=== PATIENT | female | born 1950 | race Caucasian/White ===

== ENCOUNTER 2018-09-19 14:00 | Outpatient (RCR) ==
[2016-03-03 05:16] VITALS: BMI 38.2
--- NOTE | 2018-09-09 15:20 | RS.OPPTEV2 ---
Date of Note: 09/08/18 Visit #: 1 Number of visits approved by Insurance: 19 through 12/07/18 Date of Evaluation: 09/08/18 Payer Source: Insurance Surgery Performed?: No Treatment Diagnosis: R knee pain, osteoarthritis History of Condition/Mechanism of Injury:: Flare up of OA occurred on 08/14/18. 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 pt reports pain limits her ability to perform normal work duties. States that MD feels she may need a TKR, has a appt with Dr. Uli Snyder on . Treatment Side (optional): Right *Precautions: n/a Medical History Medical History: Hypertension, Arthritis, Cancer (melanoma on L forearm) Surgical History Comments:: ruptured ectopic pregancy, abd surgery for ovarian cyst, lumpectomy L breast, removal of melanoma L forearm, 2 D & C's. Smoking Status: Never smoker Hx Home Medications: metoprolol, losartan, prevacid, potassium, vyvanse, norco, diclofenac, zyrtec, nasocort, montelukast, Patient's Goals: decrease R knee pain Pain Assessment - Pain Description Pain Location: R knee Pain Description: Sharp, Aching Current Pain Intensity: 6 Worst Pain Intensity: 8 Functional Outcome Measure LE Functional Scale: 35 - G Codes & Severity Modifier G Codes & Modifier: n/a Source of G Code score: n/a Observation - Observation Posture: Forward Head, Rounded Shoulders, Increased Thoracic Kyphosis Handedness: Right Gait - Gait Pattern General Gait Pattern Observation: Antalgic Gait, Decrease Stride Lngth (R), Decrease Stride Lngth (L), Lateral Trunk Lean Gait Comments: pt amb with antalgic gait as well as increased lat sway, decreased step length. General Range of Motion: BUE WFL's. BLE hip and ankle WFL's, L knee WFL's Muscle Strength: BUE 5/5. LLE 5/5. RLE hip flex 4/5, knee flex 3-/5, ext 3+/5 , ankle DF/PF 4/5 Knee ROM: Left WFL's Knee Muscle Strength: Left WFL's - Right Knee ROM Right Knee Extension: 0 Right Knee Flexion: 86 Knee ROM Limitations: Soft Tissue Tightness, Muscle Weakness, Pain - Right Knee Strength Right Knee Extension: 3 Fair Right Knee Flexion: 3- Fair- - Special Tests Knee Anterior Drawer Test: Negative Right Knee Posterior Drawer Test: Negative Right Knee Valgus Stress Test: Negative Right Knee Varus Stress Test: Negative Right Knee Apley Compression Test: Negative Right Knee Hitesh Test: Negative Right Patella J-sign: Negative Right Palpation Palpation Findings: Tenderness Comments:: area proximal and medial of the knee Sensation - Sensation Right Upper Extremity: Intact/Normal Left Upper Extremity: Intact/Normal Right Lower Extremity: Intact/Normal Left Lower Extremity: Intact/Normal Balance - Sitting Balance Static Sitting Balance: Normal Dynamic Sitting Balance: Normal - Standing Balance Static Standing Balance: Good Dynamic Standing Balance: Good Interventions - Exercise/Activities/Manual Therapy Exercises/Activities: pt performed QS, SAQ, LAQ, and received hamstring stretch Manual Therapy: NA HOME EXERCISE PROGRAM: pt given written HEP including: QS, SAQ, LAQ, hamstring stretch - Charges Timed Code Treatment Minutes: 52 Total Treatment Time: 61 Procedures billed for this date of service:: thang low, ex EVALUATION COMPLEXITY LEVEL EVALUATION COMPLEXITY LEVEL: HISTORY: Low, EXAM OF BODY SYSTEMS: Low, CLINICAL PRESENTATION: Medium, CLINICAL DECISION MAKING: Low Assessment Assessment: pt presents with R knee pain with decreased ROM, strength, as well as edema RLE. Feel pt would benefit from skilled PT for therex for ROM, strengthening, as well as modalities for pain/edema. 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 Goal to be met by: 10/03/18 Goal #3: Improved strength 4- to 4/5 Goal to be met by: 10/03/18 Goal #4: Improve LE functional scale to 50 Goal to be met by: 10/03/18 Plan - Treatment to be Provided Procedures: Therapeutic Exercises, Therapeutic Activity, Manual Therapy, Massage , Patient Education Modalities: Electrical Stimulation, Ultrasound/Phonophoresis, Cryotherapy, Hot Packs - Treatment Plan Frequency: 3 X week Duration: 4 weeks Dates of Cannoneer Goals: 10/03/18 Expiration date of current Insurance Approval:: 19 visits thru 12/07/18 - Treatment Code (1) Osteoarthritis of right knee Code(s): M17.9 - OSTEOARTHRITIS OF KNEE, UNSPECIFIED Qualifiers: Osteoarthritis type: primary Qualified Code(s): M17.11 - Unilateral primary osteoarthritis, right knee (2) Right knee pain Code(s): M25.561 - PAIN IN RIGHT KNEE Qualifiers: Chronicity: chronic Qualified Code(s): M25.561 - Pain in right knee; G89.29 - Other chronic pain (3) Joint stiffness of knee Qualifiers: Laterality: right Qualified Code(s): M25.661 - Stiffness of right knee, not elsewhere classified (4) Joint effusion of knee Qualifiers: Laterality: right Qualified Code(s): M25.461 - Effusion, right knee
--- NOTE | 2018-09-11 16:34 | RS.OPPTDN ---
Subjective Date of Note: 09/11/18 Visit #: 2 Number of visits approved by Insurance: na Date of Evaluation: 09/08/18 Payer Source: Insurance Treatment Diagnosis: R knee pain, osteoarthritis Current Subjective/complaints:: Patient report a decrease in pain following modalities and gentle exercise. *Precautions: n/a Pain Assessment - Pain Description Pain Location: Bialteral knees, R>L Pain Description: Sharp, Aching Current Pain Intensity: mod+ with weight bearing - Treatment Modality: Ultrasound Parameters/Method Applied: [id number] at 1.5w/cm2 to the right knee joint. Patient Position: Supine - Heat/Cryotherapy Treatment: Hot Pack ([id number] to bilateral knee joints prior to US and EX. Patient in supine. ) Interventions - Exercise/Activities/Manual Therapy Exercises/Activities: Performs QS and Ham sets with verbal and tactile cues. Assisted hamstring stretch and knee flexion/extension. Total minutes of Exercise: 12mins Manual Therapy: Directional lymphatic massage to the right LE. Total minutes of Manual Therapy: 5mins HOME EXERCISE PROGRAM: pt given written HEP including: QS, SAQ, LAQ, hamstring stretch - Charges Timed Code Treatment Minutes: 27mins Total Treatment Time: 47mins Procedures billed for this date of service:: HP, US, EX Assessment: Patient responds well to treatment with report of decreased pain. Patient Education: Body/Joint mechanics, Home Exercise Program Comments: Patient advised to focus on isometric exercise and use heat and/or ice to manage pain. 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
--- NOTE | 2018-09-12 15:35 | RS.OPPTDN ---
Subjective Date of Note: 09/12/18 Visit #: 3 Number of visits approved by Insurance: N/A Date of Evaluation: 09/08/18 Payer Source: Insurance Treatment Diagnosis: R knee pain, osteoarthritis Current Subjective/complaints:: pt states she can really tell a difference just coming for 2 visits. States her pain is decreased and her motion is a little better. *Precautions: n/a Pain Assessment - Pain Description Pain Location: R knee Pain Description: Aching Current Pain Intensity: 2 - Treatment Modality: Ultrasound Parameters/Method Applied: 1.5w/cm2 x 8 mins Treatment Area: R knee Patient Position: Supine - Heat/Cryotherapy Treatment: Hot Pack Comments:: B knees prior to treatment Interventions - Exercise/Activities/Manual Therapy Exercises/Activities: pt performed QS x 10, Ham sets x 10, LAQ, HS with assist, with gentle hamstring stretching. pt also instructed on IT band stretch in sidelying. Manual Therapy: Directional lymphatic massage to the right LE. HOME EXERCISE PROGRAM: pt given written HEP including: QS, SAQ, LAQ, hamstring stretch - Charges Timed Code Treatment Minutes: 52 Total Treatment Time: 61 Procedures billed for this date of service:: ex, ultrasound, hot pack Assessment: pt improving with less pain. pt continues with decreased ROM R knee as well as new c/o R hip pain. pt demonstrates IT band tightness as well. 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
--- NOTE | 2018-09-16 15:37 | RS.OPPTDN ---
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 *Precautions: n/a Pain Assessment - Pain Description Pain Location: bilateral knees, R>L Current Pain Intensity: mod to high - Treatment Modality: Ultrasound Parameters/Method Applied: [id number] at 1.5w/cm2 to the right knee joint prior to EX. Patient Position: Supine - Heat/Cryotherapy Treatment: Hot Pack ([id number] to bilateral knee joints. ) Interventions - Exercise/Activities/Manual Therapy Exercises/Activities: pt performed QS, Ham sets, several sets of 5 reps. Gentle hamstring stretching and passive right knee flexion/extension. Total minutes of Exercise: 10mins Manual Therapy: Directional lymphatic massage to the right LE. Total minutes of Manual Therapy: 9mins HOME EXERCISE PROGRAM: pt given written HEP including: QS, SAQ, LAQ, hamstring stretch - Charges Timed Code Treatment Minutes: 31mins Total Treatment Time: 51mins Procedures billed for this date of service:: HP, US, EX Assessment: Patient reporting progress with pain reduction with initial treatments. 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
--- NOTE | 2018-09-18 14:56 | RS.CXNS ---
Date of scheduled appointment: 09/18/18 Type: Cancel (Patient calls to cancel appointment. States she is sick.)
--- NOTE | 2018-09-19 16:14 | RS.OPPTDN ---
Subjective Date of Note: 09/19/18 Visit #: 5 Number of visits approved by Insurance: na Date of Evaluation: 09/08/18 Payer Source: Insurance Treatment Diagnosis: R knee pain, osteoarthritis Current Subjective/complaints:: Patient reports a noticeable improvement with her walking as her right knee pain has decreased. *Precautions: n/a Pain Assessment - Pain Description Pain Location: Bilateral knee joints, R>L Pain Description: Aching Current Pain Intensity: mild to mod - Treatment Modality: Ultrasound Parameters/Method Applied: [id number] at 1.5w/cm2 to the right knee joint prior to EX. Patient Position: Supine - Heat/Cryotherapy Treatment: Hot Pack ([id number] to bilateral knees prior to US and EX. Patient in supine. ) Interventions - Exercise/Activities/Manual Therapy Exercises/Activities: QS and Ham sets, with and without tactile cues. Hamstring stretching and passive right knee flexion/extension. Total minutes of Exercise: 10mins Manual Therapy: Directional lymphatic massage to the right LE. Total minutes of Manual Therapy: 8mins HOME EXERCISE PROGRAM: pt given written HEP including: QS, SAQ, LAQ, hamstring stretch - Charges Timed Code Treatment Minutes: 28mins Total Treatment Time: 48mins Procedures billed for this date of service:: HP, US, EX Assessment: Patient responding well to treatment with reports of decreased pain and increased ability to perform ambulation. Patient Education: Home Exercise Program, Activity Modification Patient demonstrates compliance with HEP?: Yes Short Term Goals Goal #1: pt independent with initial HEP Goal to be met by: 09/19/18 Progress towards Goal:: Progressing Goal #2: Decrease pain in R knee < 6/10 Goal to be met by: 09/19/18 Progress towards Goal:: Progressing Goal #3: Improve R knee flex 95 Goal to be met by: 09/19/18 Progress towards Goal:: Progressing Goal #4: R knee flex 3, ext 4-/5 Goal to be met by: 09/19/18 Progress towards Goal:: Progressing Inspector Technician Goals Goal #1: R knee flex 100 Goal to be met by: 10/03/18 Progress towards goal: Progressing 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
== END 2018-09-23 23:59 ==
PROVIDERS: ATTEND Physician Assistant
DX: M17.11 Unilateral primary osteoarthritis, right knee (principal)

== ENCOUNTER 2018-10-03 11:00 | Outpatient (RCR) ==
[2016-03-03 05:16] VITALS: BMI 38.2
--- NOTE | 2018-09-24 16:14 | RS.OPPTDN ---
Subjective Date of Note: 09/24/18 Visit #: 6 Number of visits approved by Insurance: na Date of Evaluation: 09/08/18 Payer Source: Insurance Treatment Diagnosis: R knee pain, osteoarthritis Current Subjective/complaints:: Patient reports treatment is helping reduce her knee pain. States she is working on HEP as instructed. 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 *Precautions: n/a Pain Assessment - Pain Description Pain Location: bilateral knee pain, R > L Pain Description: Sharp, Aching Current Pain Intensity: moderate - Treatment Modality: Ultrasound Parameters/Method Applied: [id number] at 1.5w/cm2 to the right knee joint prior to EX. Patient in supine. Patient Position: Supine - Heat/Cryotherapy Treatment: Hot Pack ([id number] to the bilateral knee joints prior to US and EX. Patient in supine. ) Interventions - Exercise/Activities/Manual Therapy Exercises/Activities: Discussion of HEP and patient will continue QS, Ham sets, SLR, and SLR/VMO. Total minutes of Exercise: 5mins Manual Therapy: NA HOME EXERCISE PROGRAM: pt given written HEP including: QS, SAQ, LAQ, hamstring stretch, Ham sets, SLR, SLR/VMO - Charges Timed Code Treatment Minutes: 19mins Total Treatment Time: 39mins Procedures billed for this date of service:: HP, US Assessment: Patient reporting progress with pain and with ambulation. She conitnues to have an increase in pain following a full day of work. Patient Education: Home Exercise Program, Activity Modification Patient demonstrates compliance with HEP?: Yes Short Term Goals Goal #1: pt independent with initial HEP Goal to be met by: 09/19/18 Progress towards Goal:: Progressing Goal #2: Decrease pain in R knee < 6/10 Goal to be met by: 09/19/18 Progress towards Goal:: Progressing Goal #3: Improve R knee flex 95 Goal to be met by: 09/19/18 Progress towards Goal:: Progressing Goal #4: R knee flex 3, ext 4-/5 Goal to be met by: 09/19/18 Progress towards Goal:: Progressing Long-Term Goals Goal #1: R knee flex 100 Goal to be met by: 10/03/18 Progress towards goal: Progressing 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
--- NOTE | 2018-09-25 16:16 | RS.CXNS ---
Date of scheduled appointment: 09/25/18 Type: Cancel (Patient calls to cancel appointment. States she is sick with a headache.)
--- NOTE | 2018-09-29 16:31 | RS.OPPTDN ---
Subjective Date of Note: 09/26/18 Visit #: 7 Number of visits approved by Insurance: na Date of Evaluation: 09/08/18 Payer Source: Insurance Treatment Diagnosis: R knee pain, osteoarthritis Current Subjective/complaints:: Patient reports walking has improved today. States therapy is helping reduce her pain and increase her mobility. *Precautions: n/a Pain Assessment - Pain Description Pain Location: bilateral knees, R>L Current Pain Intensity: mild to mod - Treatment Modality: Ultrasound Parameters/Method Applied: 18mins total. 10mins to the right knee joint at 1.5w/ cm2 and 8mins to the left knee joint. Patient Position: Supine - Heat/Cryotherapy Treatment: Hot Pack ([id number] to bilateral knee joints prior to US and EX. Patient in supine. ) Interventions - Exercise/Activities/Manual Therapy Exercises/Activities: Assisted stretching of bilateral hamstrings, knee flexion/ ext, and gentle SKTC. QS, Ham sets, SLR. Isometric hip add with pillow. Total minutes of Exercise: 11mins Manual Therapy: NA HOME EXERCISE PROGRAM: pt given written HEP including: QS, SAQ, LAQ, hamstring stretch, Ham sets, SLR, SLR/VMO - Charges Timed Code Treatment Minutes: 29mins Total Treatment Time: 49mins Procedures billed for this date of service:: HP, US, EX Assessment: Patient seeing slow but steady progress. 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
--- NOTE | 2018-09-30 13:22 | RS.OPPTDN ---
Subjective Date of Note: 09/29/18 Visit #: 8 Number of visits approved by Insurance: na Date of Evaluation: 09/08/18 Payer Source: Insurance Treatment Diagnosis: R knee pain, osteoarthritis Current Subjective/complaints:: Patient reports pain in bilateral knes is down and she is walking much better today. States therapy seems to be helping reduce pain. *Precautions: n/a Pain Assessment - Pain Description Pain Location: bilateral knee joints, R>L Pain Description: Dull Current Pain Intensity: mild - Treatment Modality: Ultrasound Parameters/Method Applied: 18mins total. US at 1.5w/cm2, 10mins to the right knee joint and 8mins to the left knee joint prior to EX. Patient Position: Supine - Heat/Cryotherapy Treatment: Hot Pack ([id number] to the bilateral knee joints prior to US and EX. Pt in supine. ) Interventions - Exercise/Activities/Manual Therapy Exercises/Activities: Assisted stretching of bilateral hamstrings, knee flexion/ ext, and gentle SKTC. QS, Ham sets, SLR. Isometric hip add with pillow. Total minutes of Exercise: 13mins Manual Therapy: Directional massage of the right LE to reduce swelling. Total minutes of Manual Therapy: 5mins HOME EXERCISE PROGRAM: pt given written HEP including: QS, SAQ, LAQ, hamstring stretch, Ham sets, SLR, SLR/VMO - Objective Findings Observations,measurements,etc.: Passive right knee flexion to 95 degrees or slightly better. - Charges Timed Code Treatment Minutes: 36mins Total Treatment Time: 56mins Procedures billed for this date of service:: HP, US, EX Assessment: Patient reporting good response to treatment with marked improvement in ambulation today. Patient Education: Body/Joint mechanics, Home Exercise Program Patient demonstrates compliance with HEP?: Yes Short Term Goals Goal #1: pt independent with initial HEP Goal to be met by: 09/19/18 Progress towards Goal:: Partially Met Goal #2: Decrease pain in R knee < 6/10 Goal to be met by: 09/19/18 Progress towards Goal:: Partially Met Comments:: Pain is low today Goal #3: Improve R knee flex 95 Goal to be met by: 09/19/18 Progress towards Goal:: Met Goal #4: R knee flex 3, ext 4-/5 Goal to be met by: 09/19/18 Progress towards Goal:: Progressing Director Decision Support Goals Goal #1: R knee flex 100 Goal to be met by: 10/03/18 Progress towards goal: Progressing 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
--- NOTE | 2018-10-01 15:51 | RS.OPPTDN ---
Subjective Date of Note: 10/01/18 Visit #: 9 Number of visits approved by Insurance: na Date of Evaluation: 09/08/18 Payer Source: Insurance Treatment Diagnosis: R knee pain, osteoarthritis Current Subjective/complaints:: Patient reports she is doing much better with ambulation short distances. States she is chencking on ordering mild compression garments or socks. Reports she also has purchased new shoes for good support. *Precautions: n/a Pain Assessment - Pain Description Pain Location: bilateral knee joints, R > L Pain Description: Tightness, Aching Current Pain Intensity: mild - Treatment Modality: Ultrasound Parameters/Method Applied: 22mins total. US at 1.5w/cm2 to the right knee joint [id number] and left knee joint 10mins prior to EX. Patient Position: Supine - Heat/Cryotherapy Treatment: Hot Pack ([id number] to bilateral knee joints prior to US and EX. Patient in supine. ) Interventions - Exercise/Activities/Manual Therapy Exercises/Activities: Assisted stretching of bilateral hamstrings, knee flexion/ ext, and gentle SKTC. Quad sets and Ham sets. Isometric hip add with pillow. Total minutes of Exercise: 9mins Manual Therapy: Directional massage to each LE to reduce swelling. Total minutes of Manual Therapy: 6mins HOME EXERCISE PROGRAM: pt given written HEP including: QS, SAQ, LAQ, hamstring stretch, Ham sets, SLR, SLR/VMO - Objective Findings Observations,measurements,etc.: Right knee flexion to 95 degrees and left knee flexion to approx 97 degrees. - Charges Timed Code Treatment Minutes: 37mins Total Treatment Time: 57mins Procedures billed for this date of service:: HP, US, EX Assessment: Patient reports progress with bilateral knee pain and with ambulation. She demos an increase in ROM. Patient Education: Home Exercise Program Comments: Discussion of home care including use of compression garments. 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
--- NOTE | 2018-10-03 16:02 | RS.OPPTDN ---
Subjective Date of Note: 10/03/18 Visit #: 10 Number of visits approved by Insurance: na Date of Evaluation: 09/08/18 Payer Source: Insurance Treatment Diagnosis: R knee pain, osteoarthritis Current Subjective/complaints:: Patient reports she has made good progress with therapy. States she is walking better and is doing more activities in and around her home. 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 *Precautions: n/a Pain Assessment - Pain Description Pain Location: Bilateral knee joints, R > L Pain Description: Aching Current Pain Intensity: mild - Treatment Modality: Ultrasound Parameters/Method Applied: 22mins total. US at 1.5w/cm2 [id number] to the right knee joint and [id number] to the left knee joint. - Heat/Cryotherapy Treatment: Hot Pack ([id number] to the bilateral knee joints prior to US and EX. Pt in supine. ) Interventions - Exercise/Activities/Manual Therapy Exercises/Activities: Assisted stretching of bilateral hamstrings. Checked bilateral knee flexion. Discussed HEP and patient advised to be conservative to avoid aggravating knee pain. Total minutes of Exercise: 5mins Manual Therapy: na HOME EXERCISE PROGRAM: pt given written HEP including: QS, SAQ, LAQ, hamstring stretch, Ham sets, SLR, SLR/VMO - Objective Findings Observations,measurements,etc.: Patients LE functional scale increased to 43/80 (was 35/80 on Eval). - Charges Timed Code Treatment Minutes: 27mins Total Treatment Time: 50mins Procedures billed for this date of service:: HP, US Assessment: Patient has progressed well and benefitted from treatment. She has met 4 of 8 treatment goals and feels she can continue HEP. Patient Education: Home Exercise Program, Education of Plan of Care Patient demonstrates compliance with HEP?: Yes Short Term Goals Goal #1: pt independent with initial HEP Goal to be met by: 09/19/18 Progress towards Goal:: Met Goal #2: Decrease pain in R knee < 6/10 Goal to be met by: 09/19/18 Progress towards Goal:: Met Goal #3: Improve R knee flex 95 Goal to be met by: 09/19/18 Progress towards Goal:: Met Goal #4: R knee flex 3, ext 4-/5 Goal to be met by: 09/19/18 Progress towards Goal:: Met Detention Goals Goal #1: R knee flex 100 Goal to be met by: 10/03/18 Progress towards goal: Partially Met 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
--- NOTE | 2018-10-08 09:59 | RS.OPPTDC ---
Date of Discharge: 10/03/18 Date of Evaluation: 09/08/18 Number of Visits: 10 Treatment Diagnosis: R knee pain, osteoarthritis Current Level of Function: R knee flex 95, L knee flex 96-98. Current Complaints/Gains: pt states she is doing more around her home. Was able to work in the yard and scrap picker sticks. pt is also walking better. Functional Outcome Measure LE Functional Scale: 43 - G Codes & Severity Modifier G Codes & Modifier: n/a Source of G Code score: n/a Observation - Observation Posture: Forward Head, Rounded Shoulders Handedness: Right Gait - Gait Pattern Gait Comments: gait much improved with continued slight increased lat sway Interventions - Exercise/Activities/Manual Therapy Exercises/Activities: n/a Manual Therapy: na HOME EXERCISE PROGRAM: pt given written HEP including: QS, SAQ, LAQ, hamstring stretch, Ham sets, SLR, SLR/VMO - Charges Timed Code Treatment Minutes: n/a Total Treatment Time: n/a Procedures billed for this date of service:: n/a Assessment Assessment: pt made significant progress with improved ROM as well as improved gait ability. pt with decreased pain. pt has met all STG's and 2 out of 4 LTG. pt progressing toward remaining goals. pt continues with some knee pain with prolonged standing. 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
== END 2018-10-24 23:59 ==
PROVIDERS: ATTEND Physician Assistant
DX: M17.11 Unilateral primary osteoarthritis, right knee (principal)